=== PATIENT | male | born 1990 | race Caucasian/White ===

== ENCOUNTER 2018-11-01 01:51 | Emergency (ER) | payer OTHER ==
[~2018-11-01] VITALS: Ht 180.3 cm; Wt 100.0 kg
[2018-11-01] MEDS ORDERED: ACET500T15 PO (02:12)
[2018-11-01] MEDS ORDERED: NS 1,000 ML IV ONE (02:30)
[2018-11-01] MEDS ORDERED: METOCLOPRAMIDE INJ 10MG/2ML VIAL (J2765) IV ONE (02:30)
[2018-11-01 04:00] VITALS: BP 109/59
[2018-11-01] MEDS ORDERED: REGL10TA6 PO (04:01)
== END 2018-11-01 04:30 | disposition home or self-care (01) ==
LOC: M ED 01:51
DX: K52.9 Noninfective gastroenteritis and colitis, unspecified (principal); F17.200 Nicotine dependence, unspecified, uncomplicated
CPT/HCPCS: 96374; 99284; J2765